=== PATIENT | female | born 1960 | race Hispanic/Latino ===

== ENCOUNTER 2020-03-29 21:12 | Emergency (ER) | payer SELFPAY ==
[~2020-03-29] VITALS: Ht 157.5 cm; Wt 68.0 kg
--- NOTE | 2020-03-29 21:51 | Emergency Department Note ---
History of Present Illnes History of Present Illness Chief Complaint: COVID PUI History of Present Illness This is a 59 year old female C/O URI symptoms, f/c cough, sore throat for 2 days, went to [facility] for COVID testing but she could not get the test done so pt is here for COVID testing, asking to have the results within few hours . 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 Any updates have been documented here. Past Medical History Recent Fever: No Clinical Suspicion of Infectio: No New/Unexplained Change in Ment: No Other Medical History: CHRONIC BACK PAIN Other Surgery: ECTOPIC PREG Social History Smoking Cessation: Unknown if ever smoked Any Illegal Drug Use: No TB Exposure/Symptoms: No Physically hurt or threatened: No Other Any Pre-Existing Lines (PICC,: No Is patient up to date on immun: No Review of Systems Review of Systems Constitutional: Reports as per HPI, Reports chills, Reports fever, Reports malaise EENTM: Reports no symptoms Cardiovascular: Reports no symptoms Respiratory: Reports chest congestion, Reports cough Gastrointestinal: Reports no symptoms Genitourinary: Reports no symptoms Musculoskeletal: Reports no symptoms Integumentary: Reports no symptoms Neurological: Reports no symptoms Psychological: Reports no symptoms Endocrine: Reports no symptoms Hematological/Lymphatic: Reports no symptoms Physical Exam Related Data Allergies: Coded Allergies: Acetaminophen (Verified Allergy, Unknown, 11/05/10) Propoxyphene (Verified Allergy, Unknown, 11/05/10) Vital signs reviewed: Yes (sat 95 percent RA) Physical Exam CONSTITUTIONAL Constitutional: Present well-developed, Present well-nourished HENT HENT: Present normocephalic, Present atraumatic, Present oropharynx clear/moist, Present nose normal HENT L/R: Present left ext ear normal, Present right ext ear normal EYES Eyes: Reports PERRL, Reports conjunctivae normal NECK Neck: Present ROM normal PULMONARY Pulmonary: Present effort normal, Present breath sounds normal CARDIOVASCULAR Cardiovascular: Present regular rhythm, Present heart sounds normal, Present capillary refill normal, Present normal rate GASTROINTESTINAL Abdominal: Present soft, Present nontender, Present bowel sounds normal GENITOURINARY Genitourinary: Present exam deferred SKIN Skin: Present warm, Present dry MUSCULOSKELETAL Musculoskeletal: Present ROM normal NEUROLOGICAL Neurological: Present alert, Present oriented x 3, Present no gross motor or sensory deficits PSYCHOLOGICAL Psychological: Present mood/affect normal, Present judgement normal Assessment & Plan Medical Decision Making MDM URI vs covid Assessment & Plan Final Impression: (1) COVID-19 virus infection (2) Advice given about COVID-19 virus infection Depart Disposition: HOME, SELF-CARE Physician Attestation Provider Attestation patient could not get her COVID test done within few hours so she wants to leave for some place else ELLYN SHEN MD Mar 29, 2020 21:51
== END 2020-03-29 21:37 | disposition home or self-care (01) ==
LOC: FSED 21:18
DX: U07.1 COVID-19 (principal); R05 Cough; M54.9 Dorsalgia, unspecified; G89.29 Other chronic pain
CPT/HCPCS: 99282